=== PATIENT | female | born 1970 | race Caucasian/White ===

== ENCOUNTER 2022-08-17 11:45 | Emergency (ER) | payer MEDICAID, SELFPAY ==
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
[2022-08-17 11:53] VITALS: BP 153/104; PULSE 77; RESP 17; TEMP 36.8; O2SAT 97; BMI 40.7
== END 2022-08-17 13:00 | disposition home or self-care (01) ==
PROVIDERS: Emergency Provider Emergency Medicine
DX: F32.A Depression, unspecified (principal); I10 Essential (primary) hypertension
CPT/HCPCS: 99283

== ENCOUNTER 2022-10-13 13:11 | Outpatient (CLI) | payer MEDICAID, SELFPAY ==
--- NOTE | 2022-10-13 13:21 | MM_ITS ---
WS: [id number] BILATERAL 3D TOMOSYNTHESIS DIGITAL DIAGNOSTIC MAMMOGRAPHY WITH CAD CLINICAL INFORMATION: ANIYAH BLACK DISCHARGE HISTORY: Bilateral breast discharge COMPARISON: Baseline TECHNIQUE: Bilateral CC, MLO, and ML views. FINDINGS: The breasts are composed of heterogeneous fibroglandular density, which can limit the detection of sm all underlying mass lesions. No suspicious focal mass, asymmetry, calcifications, or architectural distortion. Ultrasound bilatera l areola described below. ULTRASOUND BREAST BILATERAL TECHNIQUE: Ultrasound bilateral breast focused area of concern. CLINICAL INFORMATION: ANIYAH BLACK DISCHARGE FINDINGS: Ultrasound bilateral breast at the areola. Dilated ducts deep to the areola compatible with ductal ec chet. A small amount of scattered intraductal debris. No focal intraductal lesions. Recommend return to annual screening mammography. MM/[place] [id number] IMPRESSION: BI-RADS: 2-Benign FOLLOW UP: 1 Year Follow-up Recommend return to annual screening mammography.
--- NOTE | 2022-10-13 14:16 | US_ITS ---
WS: [id number] BILATERAL 3D TOMOSYNTHESIS DIGITAL DIAGNOSTIC MAMMOGRAPHY WITH CAD CLINICAL INFORMATION: ANIYAH BLACK DISCHARGE HISTORY: Bilateral breast discharge COMPARISON: Baseline TECHNIQUE: Bilateral CC, MLO, and ML views. FINDINGS: The breasts are composed of heterogeneous fibroglandular density, which can limit the detection of sm all underlying mass lesions. No suspicious focal mass, asymmetry, calcifications, or architectural distortion. Ultrasound bilatera l areola described below. ULTRASOUND BREAST BILATERAL TECHNIQUE: Ultrasound bilateral breast focused area of concern. CLINICAL INFORMATION: ANIYAH BLACK DISCHARGE FINDINGS: Ultrasound bilateral breast at the areola. Dilated ducts deep to the areola compatible with ductal ec chet. A small amount of scattered intraductal debris. No focal intraductal lesions. Recommend return to annual screening mammography. US/US breast BI limited* [id number] IMPRESSION: BI-RADS: 2-Benign FOLLOW UP: 1 Year Follow-up Recommend return to annual screening mammography.
== END 2022-10-13 13:12 | disposition home or self-care (01) ==
PROVIDERS: Visit Provider Nurse Practitioner Family
DX: N64.52 Nipple discharge (principal)
CPT/HCPCS: 76642; 77062; 77063; 77067; G0279